=== PATIENT | female | born 1945 | race Caucasian/White ===

== ENCOUNTER 2019-07-20 10:05 | Outpatient (CLI) | payer MEDICARE, OTHER, SELFPAY ==
--- NOTE | 2019-07-20 10:15 | ECG_ITS ---
Measurements Intervals [place] Rate: 55 P: 227 WA: 216 QRS: -14 QRSD: 98 T: 52 QT: 442 QTc: 424 Interpretive Statements SINUS BRADYCARDIA LOW VOLTAGE- PRECORDIAL LEADS POOR R WAVE PROGRESSION, CONSIDER ANTERIOR INFARCT BASELINE ARTIFACT- I, II, III, AVR, AVL, AVF, V1-V6 ABNORMAL ECG Electronically Signed On 07-20-2019 14:58:11 COMMUTATOR INSPECTOR by Kartik Haji D.O.
== END 2019-07-20 10:06 | disposition home or self-care (01) ==
LOC: ANHSURGERY 10:15
PROVIDERS: PCP Family Medicine; Visit Provider Urology
DX: N31.9 Neuromuscular dysfunction of bladder, unspecified (principal); I10 Essential (primary) hypertension; R94.31 Abnormal electrocardiogram [ECG] [EKG]
CPT/HCPCS: 87077; 87086; 87088; 87186; 93005

== ENCOUNTER 2019-07-24 01:14 | Day surgery (SDC) | payer MEDICARE, OTHER, SELFPAY ==
[2019-07-02 13:57] VITALS: BMI 35.5
[2019-07-24 06:58] VITALS: BP 182/69; PULSE 63; RESP 20; TEMP 36.4; O2SAT 96
--- NOTE | 2019-07-24 07:09 | WPDANESEPPF ---
Anes - Initial Pre Proc Eval Procedure: Operation Date: 07/24/19 08:45 Proposed Procedures p Cystoscopy, Botox Injection - Miguel Paulson MD Date/Time: 07/24/19 07:09 Surgeon: Miguel Paulson MD Pre Op Diagnosis: Neurogenic Bladder Patient Data Age: 74 Gender: F Height: 1.68 m Weight: 99.8 kg Allergies Allergy/AdvReac Type Severity Reaction Status Date / Time latex Allergy Unknown Rash Verified 07/02/19 13:17 NSAIDS (Non-Steroidal Allergy Unknown Unknown Verified 07/02/19 13:18 Anti-Inflamma propoxyphene Allergy Unknown Nausea Verified 07/02/19 13:16 [From Darvocet-N] zolpidem [From Ambien] Allergy Unknown Confusion Verified 07/02/19 13:14 Home Medications Medication Instructions Recorded Confirmed Type acetaminophen [Tylenol Extra 500 mg PO BID PRN 07/02/19 07/02/19 History Strength] aspirin [Aspir-81] 81 mg PO HS 07/02/19 07/02/19 History cholecalciferol (vitamin D3) 2,000 unit PO DAILY 07/02/19 07/02/19 History clonazepam 0.25 mg PO HS 07/02/19 07/02/19 History escitalopram oxalate [Lexapro] 10 mg PO DAILY 07/02/19 07/02/19 History levothyroxine 112 mcg PO DAILY 07/02/19 07/02/19 History lisinopril 10 mg PO HS 07/02/19 07/02/19 History metoprolol succinate [Toprol XL] 50 mg PO HS 07/02/19 07/02/19 History omega 7-uzp-dom-fish oil [Fish Oil] 1 cap PO DAILY 07/02/19 07/02/19 History pravastatin 40 mg PO HS 07/02/19 07/02/19 History pregabalin [Lyrica] 75 mg PO PRN PRN 07/02/19 07/02/19 History pregabalin [Lyrica] 150 mg PO QPM 07/02/19 07/02/19 History Patient hx anesthesia problems: none Family hx anesthesia problems: none PMFSH Past Medical History Medical History (Updated 07/23/19 @ 08:14 by Gage Engel DO) Anxiety CAD (coronary artery disease) CVA (cerebral vascular accident) no residual History of heart attack 2013 Hyperlipidemia Hypertension Multiple sclerosis uses wheelchair Surgical History Surgical History (Updated 07/23/19 @ 08:14 by Gage Engel DO) History of coronary artery stent placement 2006, 2008, 2013 for total of 3 History of total knee arthroplasty b/l Hx of CABG x5 vessel 2005 Anes - Eval Final PreProcedure Day of Procedure 07/24/19 07:09 Patient weight: obese Heart: regular rate and rhythm Lungs: clear to auscultation and normal air movement Airway: Mallampati scale class III Neurological: alert and oriented Last oral intake: >/= 8 hours ASA classification: IV Emergent: no Anesthetic plan: proceed Anesthesia type and monitoring: general GIVS and standard monitoring Informed Consent: The patient's anesthetic plan and its attendant risks and benefits were discussed with the patient/family/POA. Questions were solicited and answers provided to the satisfaction of the patient/family/POA.
[2019-07-24] MEDS: LACTATED RINGERS 1,000 ML 30 ML IV CONT (07:10)
--- NOTE | 2019-07-24 07:24 | WPDHPUPDATE1 ---
History and Physical Update Update Date/Time: 07/24/19 07:24 History and Physical has been reviewed, including an updated exam of the patient. There are NO changes in the patient's condition. Risks, benefits, and alternatives have been discussed and questions answered. Patient agrees to proceed with procedure.
[2019-07-24] MEDS: ceFAZolin 2 GM/D5W 50 ML 2 GM/50 ML BAG IVPB (07:31)
[2019-07-24] MEDS: BOTULINUM TOXIN TYPE A (*SPLP) 100 UNITS VIAL 200 UNITS IM (07:47)
[2019-07-24] MEDS: LIDOCAINE HCL 2% GEL UROJET 10 ML PKG MUCOUS MEM (07:48)
--- NOTE | 2019-07-24 07:50 | PM.PROC ---
Procedure Note - Detailed Date of procedure: 07/24/19 Pre-op diagnosis: Neurogenic Bladder Post-op diagnosis: same Procedure performed: Cystoscopy with injection of botulinum toxin a 200 units Description of procedure: She has had Botox in the past. We used 100 units. She had about 50% success. She would like to go up to 200 units. She understands the risk of lack of efficacy and need for intermittent catheterization. She agrees to proceed. She was correctly identified informed consent was obtained she was brought to the operating room. She was placed in the dorsal thigh position. She was given mac anesthesia. She was prepped and draped in sterile fashion. She was pretreated with antibiotics and given appropriate perioperative antibiotics. A time-out performed. Cystoscopy revealed a normal-appearing bladder. Mild trabeculation. No redness or signs of active infection. I mixed 200 units of Botox in 20 cc preservative-free saline. I injected it throughout the bladder the sub urothelial layer. I used additional cc to clear the needle. The there was minimal bleeding under low insufflation pressures. Her bladder was drained. She was awakened and transferred to the PACU in stable condition. Anesthesia: MAC Surgeon: Miguel Paulson MD Estimated blood loss (mL): 1 Drains: No Packing: No Pathology: none sent Complications: No immediate complications Condition: stable Disposition: PACU
[2019-07-24 07:55] VITALS: BP 153/54; PULSE 63; RESP 14; O2SAT 96
[2019-07-24 08:10] VITALS: BP 164/53; PULSE 57; RESP 16
[2019-07-24 08:25] VITALS: BP 182/61; PULSE 55; RESP 16
== END 2019-07-24 09:05 | disposition home or self-care (01) ==
PROVIDERS: PCP Family Medicine; Visit Provider Urology
PROC: 3E0K8GC Introduction of Other Therapeutic Substance into Genitourinary Tract, Via Natural or Artificial Opening Endoscopic (ICD-10-PCS; CPT 52287; principal; 2019-07-24 08:45)
DX: N31.9 Neuromuscular dysfunction of bladder, unspecified (principal); I10 Essential (primary) hypertension; I25.10 Atherosclerotic heart disease of native coronary artery without angina pectoris; G35 Multiple sclerosis; E78.5 Hyperlipidemia, unspecified; I25.2 Old myocardial infarction; F41.9 Anxiety disorder, unspecified; Z79.82 Long term (current) use of aspirin; Z86.73 Personal history of transient ischemic attack (TIA), and cerebral infarction without residual deficits; Z95.5 Presence of coronary angioplasty implant and graft; Z95.1 Presence of aortocoronary bypass graft; E66.9 Obesity, unspecified; Z68.35 Body mass index [BMI] 35.0-35.9, adult
CPT/HCPCS: 52287; A9270; J0585; J0690; J2704; J3010; J7120

== ENCOUNTER 2020-01-15 13:23 | Outpatient (CLI) | payer MEDICARE, OTHER, SELFPAY | END 2020-01-15 13:24 | disposition home or self-care (01) | LOC: ANHSURGERY 13:25 | PROVIDERS: Visit Provider Urology | DX: Z01.818 Encounter for other preprocedural examination (principal); N31.9 Neuromuscular dysfunction of bladder, unspecified | CPT/HCPCS: 87077; 87086; 87088; 87186 ==

== ENCOUNTER 2020-02-11 12:27 | Outpatient (CLI) | payer MEDICARE, OTHER, SELFPAY | END 2020-02-11 12:28 | disposition home or self-care (01) | LOC: ANHSURGERY 12:29 | PROVIDERS: Visit Provider Urology | DX: N31.9 Neuromuscular dysfunction of bladder, unspecified (principal); N39.0 Urinary tract infection, site not specified | CPT/HCPCS: 87086; 87088 ==

== ENCOUNTER 2020-02-17 01:53 | Outpatient (CLI) | payer MEDICARE, OTHER, SELFPAY ==
[2020-02-17 19:20] LABS: SARS-CoV-2 RNA PCR Negative
== END 2020-02-17 01:54 | disposition home or self-care (01) ==
LOC: ANHCOVIDDT 01:53
PROVIDERS: Visit Provider Urology
DX: Z01.812 Encounter for preprocedural laboratory examination (principal); Z20.828 Contact with and (suspected) exposure to other viral communicable diseases
CPT/HCPCS: 87635; C9803; U0003

== ENCOUNTER 2020-02-19 00:51 | Day surgery (SDC) | payer MEDICARE, OTHER, SELFPAY ==
[2020-01-11 10:50] VITALS: BMI 35.6
--- NOTE | 2020-02-14 17:39 | PM.IMHP ---
H&P: HPI History of Present Illness Date/Time: 02/14/20 17:39 Chief complaint: Neurogenic Bladder N31.1 Narrative: Shelley Marie is a 75 year old female with neurogenic bladder PMFSH Past Medical History Medical History (Updated 02/14/20 @ 17:41 by Miguel Paulson MD) Anxiety CAD (coronary artery disease) CVA (cerebral vascular accident) no residual History of heart attack 2013 Hyperlipidemia Hypertension Multiple sclerosis uses wheelchair Surgical History Surgical History (Updated 07/23/19 @ 08:14 by Gage Engel DO) History of coronary artery stent placement 2006, 2008, 2013 for total of 3 History of total knee arthroplasty b/l Hx of CABG x5 vessel 2005 Social History Social History Smoking status: Former smoker Additional smoking assessment comments: 1PK/DAY - QUIT Spiritual care concerns: No Meds Home Medications and Allergies Home Medications Medication Instructions Recorded Confirmed Type acetaminophen [Tylenol Extra 500 mg PO BID PRN 07/02/19 01/11/20 History Strength] aspirin [Aspir-81] 81 mg PO HS 07/02/19 01/11/20 History cholecalciferol (vitamin D3) 2,000 unit PO DAILY 07/02/19 01/11/20 History clonazepam 0.25 mg PO HS 07/02/19 01/11/20 History escitalopram oxalate [Lexapro] 10 mg PO DAILY 07/02/19 01/11/20 History levothyroxine 112 mcg PO DAILY 07/02/19 01/11/20 History lisinopril 10 mg PO HS 07/02/19 01/11/20 History metoprolol succinate [Toprol XL] 50 mg PO HS 07/02/19 01/11/20 History omega 6-nkd-oou-fish oil [Fish Oil] 1 cap PO DAILY 07/02/19 01/11/20 History pravastatin 40 mg PO HS 07/02/19 01/11/20 History pregabalin [Lyrica] 75 mg PO PRN PRN 07/02/19 01/11/20 History pregabalin [Lyrica] 150 mg PO QPM 07/02/19 01/11/20 History Allergies Allergy/AdvReac Type Severity Reaction Status Date / Time latex Allergy Unknown Rash Verified 01/11/20 10:47 NSAIDS (Non-Steroidal Allergy Unknown Nausea Verified 01/11/20 10:47 Anti-Inflamma propoxyphene Allergy Unknown Nausea Verified 01/11/20 10:47 [From Darvocet-N] zolpidem [From Ambien] Allergy Unknown Confusion Verified 01/11/20 10:47 Exam Const: General: no acute distress HENMT: Mouth: Yes moist mucous membranes Eyes: EOM: EOMs intact bilaterally Neck: Neck: supple Resp: Effort & Inspection: normal respiratory effort GI: GI Palp: Yes Soft to palpation Skin: General skin exam: normal color Extrem: General: normal to inspection Psych: Mental Status: mental status grossly normal Assessment and Plan Assessment and plan (1) Reflex neurogenic bladder: Code(s): N31.1 - Reflex neuropathic bladder, not elsewhere classified Status: Acute Assessment and Plan: cysto/botox 200U
--- NOTE | 2020-02-19 07:21 | WPDHPUPDATE1 ---
History and Physical Update Update Date/Time: 02/19/20 07:21 History and Physical has been reviewed, including an updated exam of the patient. There are NO changes in the patient's condition. Risks, benefits, and alternatives have been discussed and questions answered. Patient agrees to proceed with procedure.
[2020-02-19 09:40] VITALS: BP 187/73; PULSE 50; RESP 18; TEMP 36.8; O2SAT 97
--- NOTE | 2020-02-19 09:43 | WPDANESEPPF ---
Anes - Initial Pre Proc Eval Procedure: Operation Date: 02/19/20 11:30 Proposed Procedures p Cystoscopy, Botox Injection - Miguel Paulson MD Date/Time: 02/19/20 09:43 Surgeon: Miguel Paulson MD Pre Op Diagnosis: Neurogenic Bladder N31.1 Patient Data Age: 75 Gender: F Height: 5 ft 6 in Weight: 99.4 kg Allergies Allergy/AdvReac Type Severity Reaction Status Date / Time latex Allergy Unknown Rash Verified 02/19/20 09:34 NSAIDS (Non-Steroidal Allergy Unknown Nausea Verified 02/19/20 09:34 Anti-Inflamma propoxyphene Allergy Unknown Nausea Verified 02/19/20 09:34 [From Darvocet-N] zolpidem [From Ambien] Allergy Unknown Confusion Verified 02/19/20 09:34 Home Medications Medication Instructions Recorded Confirmed Type acetaminophen [Tylenol Extra 500 mg PO BID PRN 07/02/19 02/19/20 History Strength] aspirin [Aspir-81] 81 mg PO HS 07/02/19 02/19/20 History cholecalciferol (vitamin D3) 2,000 unit PO DAILY 07/02/19 02/19/20 History clonazepam 0.25 mg PO HS 07/02/19 02/19/20 History escitalopram oxalate [Lexapro] 10 mg PO DAILY 07/02/19 02/19/20 History levothyroxine 112 mcg PO DAILY 07/02/19 02/19/20 History lisinopril 10 mg PO HS 07/02/19 02/19/20 History metoprolol succinate [Toprol XL] 50 mg PO HS 07/02/19 02/19/20 History omega 9-hnp-uoq-fish oil [Fish Oil] 1 cap PO DAILY 07/02/19 02/19/20 History pravastatin 40 mg PO HS 07/02/19 02/19/20 History pregabalin [Lyrica] 75 mg PO PRN PRN 07/02/19 02/19/20 History pregabalin [Lyrica] 150 mg PO QPM 07/02/19 02/19/20 History Patient hx anesthesia problems: none Family hx anesthesia problems: none PMFSH Past Medical History Medical History Anxiety CAD (coronary artery disease) CVA (cerebral vascular accident) no residual History of heart attack 2013 Hyperlipidemia Hypertension Multiple sclerosis uses wheelchair Surgical History Surgical History History of coronary artery stent placement 2006, 2008, 2013 for total of 3 History of total knee arthroplasty b/l Hx of CABG x5 vessel 2006 Social History Social History Smoking status: Former smoker Additional smoking assessment comments: 1PK/DAY - QUIT Living arrangements: with family Spiritual care concerns: No Anes - Eval Final PreProcedure Day of Procedure 02/19/20 09:43 Patient weight: obese Heart: regular rate and rhythm Lungs: decreased breath sounds Airway: Mallampati scale class II Neurological: other (alert) Last oral intake: >/= 8 hours ASA classification: IV Emergent: no Anesthetic plan: proceed Anesthesia type and monitoring: general GIVS and standard monitoring Informed Consent: The patient's anesthetic plan and its attendant risks and benefits were discussed with the patient/family/POA. Questions were solicited and answers provided to the satisfaction of the patient/family/POA.
[2020-02-19] MEDS: LACTATED RINGERS 1,000 ML 30 ML IV CONT (09:45)
[2020-02-19] MEDS: ceFAZolin 2 GM/D5W 50 ML 2 GM/50 ML BAG IVPB (10:38)
[2020-02-19] MEDS: LIDOCAINE HCL 2% GEL UROJET 10 ML PKG MUCOUS MEM (10:46)
[2020-02-19] MEDS: BOTULINUM TOXIN TYPE A (*SPLP) 100 UNITS VIAL 200 UNITS IM (10:47)
[2020-02-19 11:03] VITALS: BP 151/61; PULSE 61; RESP 16; O2SAT 96
--- NOTE | 2020-02-19 11:06 | PM.PROC ---
Procedure Note - Detailed Date of procedure: 02/19/20 Pre-op diagnosis: Neurogenic Bladder N31.1 Post-op diagnosis: same Procedure performed: Cystoscopy with injection of Botox 200 units Description of procedure: She was correctly identified informed consents obtained. She from the operating room. She was given mac anesthesia. She was placed in dorsal position. She was prepped and draped in a sterile fashion. Time-out performed. Bladder had moderate trabeculations. I mixed 2 units of Botox in 20 cc preservative-free saline. I injected throughout the bladder the sub urothelial layer. Additional cc was used to clear the field. Her bladder is drained. There was minimal bleeding the injection sites. She was awakened and transferred to the PACU in stable condition. Anesthesia: MAC Surgeon: Miguel Paulson MD Estimated blood loss (mL): 0 Drains: No Packing: No Pathology: none sent Complications: No immediate complications Condition: stable Disposition: PACU
[2020-02-19 11:30] VITALS: BP 212/82; PULSE 52; RESP 16; O2SAT 97
[2020-02-19 12:00] VITALS: BP 185/58; PULSE 51; RESP 16; O2SAT 97
[2020-02-19] MEDS: hydrALAZINE HCL 20 MG/ML VIAL 10 MG IV PUSH (12:10)
[2020-02-19 12:30] VITALS: BP 167/55; PULSE 59; RESP 16; O2SAT 98
[2020-02-19 12:45] VITALS: BP 180/52; PULSE 54; RESP 16
== END 2020-02-19 13:07 | disposition home or self-care (01) ==
PROVIDERS: Visit Provider Urology
PROC: 3E0K8GC Introduction of Other Therapeutic Substance into Genitourinary Tract, Via Natural or Artificial Opening Endoscopic (ICD-10-PCS; CPT 52287; principal; 2020-02-19 11:30)
DX: N31.1 Reflex neuropathic bladder, not elsewhere classified (principal); I25.10 Atherosclerotic heart disease of native coronary artery without angina pectoris; I10 Essential (primary) hypertension; E78.5 Hyperlipidemia, unspecified; G35 Multiple sclerosis; I25.2 Old myocardial infarction; F41.9 Anxiety disorder, unspecified; Z86.73 Personal history of transient ischemic attack (TIA), and cerebral infarction without residual deficits; Z79.82 Long term (current) use of aspirin; Z95.5 Presence of coronary angioplasty implant and graft; Z95.1 Presence of aortocoronary bypass graft; Z87.891 Personal history of nicotine dependence; E66.9 Obesity, unspecified; Z68.35 Body mass index [BMI] 35.0-35.9, adult
CPT/HCPCS: 52287; A9270; J0360; J0585; J0690; J1100; J2405; J2704; J3010; J7120

== ENCOUNTER → 2020-09-02 00:11 | Outpatient (CLI) | payer MEDICARE, OTHER, SELFPAY ==
[2020-09-02 17:44] LABS: SARS-CoV-2 RNA PCR Negative
== END ==
PROVIDERS: Visit Provider Urology
DX: Z01.812 Encounter for preprocedural laboratory examination (principal); Z20.822 Contact with and (suspected) exposure to COVID-19
CPT/HCPCS: C9803; U0003; U0005

== ENCOUNTER 2020-09-02 08:16 | Outpatient (CLI) | payer MEDICARE, OTHER, SELFPAY ==
[2020-09-02 09:03] LABS: Add Urine Microscopic? YES; Appearance Urine Cloudy (Clear); Bacteria Urine 2+ /hpf; Bilirubin Urine Negative (Negative); Blood Urine Negative (Negative); Color Urine Yellow (Yellow); Glucose Urine UA Negative (Negative); Ketones Urine Negative (Negative); Leukocyte Esterase Ur 1+ LEU/UL (Negative); Mucus Urine Rare /lpf; Nitrate Urine Negative (Negative); Protein Urine 1+ mg/dL (Negative); Specific Grav Ur 1.026 (1.001-1.035); Squamous Epithelial Cell Urine Many /hpf (Few); Urobilinogen Urine Negative mg/dL (<2.0); WBC Urine 31-50 /hpf
--- NOTE | 2020-09-02 09:30 | ECG_ITS ---
Measurements Intervals [place] Rate: 56 P: 7 [place]: 208 QRS: -9 QRSD: 93 T: 50 QT: 420 QTc: 406 Interpretive Statements SINUS BRADYCARDIA BORDERLINE R WAVE PROGRESSION, ANTERIOR LEADS INFERIOR INFARCT, AGE INDETERMINATE BORDERLINE ST-T WAVE ABNORMALITY- ANT/HIGH LAT LEADS BASELINE ARTIFACT- I, II, III, AVR, AVL, AVF, V1-V6 ABNORMAL ECG Electronically Signed On 09-02-2020 8:47:10 CDT by Kartik Haji D.O.
== END 2020-09-02 08:17 | disposition home or self-care (01) ==
LOC: ANHSURGERY 08:20
PROVIDERS: Visit Provider Urology
DX: Z01.818 Encounter for other preprocedural examination (principal); N31.1 Reflex neuropathic bladder, not elsewhere classified; I25.2 Old myocardial infarction; R00.1 Bradycardia, unspecified; Z51.81 Encounter for therapeutic drug level monitoring; Z79.899 Other long term (current) drug therapy; I10 Essential (primary) hypertension
CPT/HCPCS: 81001; 87077; 87086; 87088; 87186; 93005; C9803; U0003; U0005

== ENCOUNTER 2020-09-05 01:04 | Day surgery (SDC) | payer MEDICARE, OTHER, SELFPAY ==
[2020-08-29 11:08] VITALS: BMI 37.1
--- NOTE | 2020-09-02 18:08 | PM.IMHP ---
H&P: HPI History of Present Illness Date/Time: 09/02/20 18:08 75yo with Neurogenic bladder Chief Complaint: NGB Review of Systems Review of Systems: All systems reviewed & are unremarkable except as noted in HPI and below [facility] Past Medical History Medical History Anxiety CAD (coronary artery disease) CVA (cerebral vascular accident) no residual History of heart attack 2013 Hyperlipidemia Hypertension Multiple sclerosis uses wheelchair Surgical History Surgical History History of coronary artery stent placement 2006, 2008, 2013 for total of 3 History of total knee arthroplasty b/l Hx of CABG x5 vessel 2005 Social History Social History Smoking packs per day: 1 Smoking cigarettes per day: 20.0 Years smoked: 15 Smoking pack-years: 15.00 Smoking status: Former smoker Tobacco type: cigarettes Smoking end date: 06/10/79 Additional smoking assessment comments: 1PK/DAY - QUIT Spiritual care concerns: No Meds Home Medications and Allergies Home Medications Medication Instructions Recorded Confirmed Type acetaminophen [Tylenol Extra 500 mg PO BID PRN 07/02/19 08/29/20 History Strength] aspirin [Aspir-81] 81 mg PO HS 07/02/19 08/29/20 History cholecalciferol (vitamin D3) 2,000 unit PO DAILY 07/02/19 08/29/20 History escitalopram oxalate [Lexapro] 10 mg PO DAILY 07/02/19 08/29/20 History levothyroxine 112 mcg PO DAILY 07/02/19 08/29/20 History lisinopril 40 mg PO DAILY 07/02/19 08/29/20 History metoprolol succinate [Toprol XL] 50 mg PO HS 07/02/19 08/29/20 History omega 0-pcq-wso-fish oil [Fish Oil] 1 cap PO BID 07/02/19 08/29/20 History pravastatin 40 mg PO HS 07/02/19 08/29/20 History pregabalin [Lyrica] 75 mg PO PRN PRN 07/02/19 08/29/20 History pregabalin [Lyrica] 150 mg PO QPM 07/02/19 08/29/20 History melatonin 3 mg PO HS PRN 08/29/20 08/29/20 History Allergies Allergy/AdvReac Type Severity Reaction Status Date / Time latex Allergy Unknown Rash Verified 08/29/20 10:46 NSAIDS (Non-Steroidal Allergy Unknown PT STATES Verified 08/29/20 10:48 Anti-Inflamma ORDERS FROM [employer] propoxyphene Allergy Unknown Nausea Verified 08/29/20 10:46 [From Darvocet-N] zolpidem [From Ambien] Allergy Unknown Confusion Verified 08/29/20 10:46 Exam Const: General: cooperative and healthy appearing HENMT: Head: normal to inspection Eyes: General: appearance normal, both eyes and all related structures Resp: Effort & Inspection: normal respiratory effort and able to speak in complete sentences GI: Inspection: normal to inspection Skin: General skin exam: normal color Assessment and Plan Assessment and plan (1) Reflex neurogenic bladder: Code(s): N31.1 - Reflex neuropathic bladder, not elsewhere classified Status: Acute Assessment and Plan: cysto/botox 200U
[2020-09-05] VITALS (7 sets, daily range): BP systolic 164–196; BP diastolic 69–93; PULSE 57–70; RESP 14–20; TEMP 37.1; O2SAT 99
--- NOTE | 2020-09-05 07:20 | WPDHPUPDATE1 ---
History and Physical Update Update Date/Time: 09/05/20 07:20 History and Physical has been reviewed, including an updated exam of the patient. There are NO changes in the patient's condition. Risks, benefits, and alternatives have been discussed and questions answered. Patient agrees to proceed with procedure.
--- NOTE | 2020-09-05 12:50 | WPDANESEPPF ---
Anes - Initial Pre Proc Eval Procedure: Operation Date: 09/05/20 14:30 Proposed Procedures p Cystoscopy, Botox Injection - Miguel Paulson MD Date/Time: 09/05/20 12:50 Surgeon: Miguel Paulson MD Pre Op Diagnosis: Neurogenic Bladder Patient Data Age: 75 Gender: F Height: 5 ft 6 in Weight: 104.33 kg Allergies Allergy/AdvReac Type Severity Reaction Status Date / Time latex Allergy Unknown Rash Verified 08/29/20 10:46 NSAIDS (Non-Steroidal Allergy Unknown PT STATES Verified 08/29/20 10:48 Anti-Inflamma ORDERS FROM DIAGNOSTIC RADIOLOGIST propoxyphene Allergy Unknown Nausea Verified 08/29/20 10:46 [From Darvocet-N] zolpidem [From Ambien] Allergy Unknown Confusion Verified 08/29/20 10:46 Home Medications Medication Instructions Recorded Confirmed Type acetaminophen [Tylenol Extra 500 mg PO BID PRN 07/02/19 08/29/20 History Strength] aspirin [Aspir-81] 81 mg PO HS 07/02/19 08/29/20 History cholecalciferol (vitamin D3) 2,000 unit PO DAILY 07/02/19 08/29/20 History escitalopram oxalate [Lexapro] 10 mg PO DAILY 07/02/19 08/29/20 History levothyroxine 112 mcg PO DAILY 07/02/19 08/29/20 History lisinopril 40 mg PO DAILY 07/02/19 08/29/20 History metoprolol succinate [Toprol XL] 50 mg PO HS 07/02/19 08/29/20 History omega 0-rmp-auv-fish oil [Fish Oil] 1 cap PO BID 07/02/19 08/29/20 History pravastatin 40 mg PO HS 07/02/19 08/29/20 History pregabalin [Lyrica] 75 mg PO PRN PRN 07/02/19 08/29/20 History pregabalin [Lyrica] 150 mg PO QPM 07/02/19 08/29/20 History melatonin 3 mg PO HS PRN 08/29/20 08/29/20 History Patient hx anesthesia problems: none Family hx anesthesia problems: none PMFSH Past Medical History Medical History Anxiety CAD (coronary artery disease) CVA (cerebral vascular accident) no residual History of heart attack 2013 Hyperlipidemia Hypertension Multiple sclerosis uses wheelchair Surgical History Surgical History History of coronary artery stent placement 2006, 2008, 2013 for total of 3 History of total knee arthroplasty b/l Hx of CABG x5 vessel 2005 Social History Social History Smoking packs per day: 1 Smoking cigarettes per day: 20.0 Years smoked: 15 Smoking pack-years: 15.00 Smoking status: Former smoker Tobacco type: cigarettes Smoking end date: 06/10/79 Additional smoking assessment comments: 1PK/DAY - QUIT Living arrangements: with family Spiritual care concerns: No Anes - Eval Final PreProcedure Day of Procedure 09/05/20 12:50 Patient weight: obese Heart: regular rate and rhythm Lungs: clear to auscultation Airway: Mallampati scale class II Neurological: other (alert) Last oral intake: >/= 8 hours ASA classification: III Emergent: no Anesthetic plan: proceed Anesthesia type and monitoring: general GIVS and standard monitoring Informed Consent: The patient's anesthetic plan and its attendant risks and benefits were discussed with the patient/family/POA. Questions were solicited and answers provided to the satisfaction of the patient/family/POA.
[2020-09-05] MEDS: LACTATED RINGERS 1,000 ML 30 ML IV CONT (13:02)
[2020-09-05] MEDS: BOTULINUM TOXIN TYPE A (*SPLP) 100 UNITS VIAL 200 UNITS XX (14:36)
[2020-09-05] MEDS: ceFAZolin 2 GM/D5W 50 ML 2 GM/50 ML BAG IVPB (14:37)
[2020-09-05] MEDS: LIDOCAINE HCL 2% GEL UROJET 10 ML PKG MUCOUS MEM (14:37)
--- NOTE | 2020-09-05 14:44 | PM.PROC ---
Procedure Note - Detailed Date of procedure: 09/05/20 Pre-op diagnosis: Neurogenic Bladder Post-op diagnosis: same Procedure performed: Cystoscopy with injection of botulinum toxin a 200 units Description of procedure: She is asymptomatic for urinary tract infection. Despite a positive urine culture. She understands the small risk of infection. She presents today for Botox procedure. Works excellent for her. She was correctly identified. Informed consent obtained. From the operating room. She was given mac anesthesia. She was prepped and draped in a sterile fashion. Time-out performed. Cystoscopy revealed a normal-appearing bladder. There is no inflammation or signs of infection. Ureteral orifices were normal. No other bladder abnormalities. I mixed 200units of Botox in 20 cc preservative-free saline. I injected it throughout the bladder in the sub urothelial muscular layer. Additional cc was used to clear the heel. She was awakened after bladder was drained and taken to the PACU in stable condition. Anesthesia: MAC Surgeon: Miguel Paulson MD Estimated blood loss (mL): 0 Drains: No Packing: No Pathology: none sent Complications: No immediate complications Condition: stable Disposition: PACU
--- NOTE | 2020-09-05 17:12 | SUR.PHASEII ---
1615 - dr. gould called in regards to pt's blood pressure. 191/77 hr 63. no orders received at this time.
== END 2020-09-05 17:00 | disposition home health service (06) ==
PROVIDERS: PCP Family Medicine; Visit Provider Urology
PROC: 3E0K8GC Introduction of Other Therapeutic Substance into Genitourinary Tract, Via Natural or Artificial Opening Endoscopic (ICD-10-PCS; CPT 52287; principal; 2020-09-05 14:30)
DX: N31.9 Neuromuscular dysfunction of bladder, unspecified (principal); F41.9 Anxiety disorder, unspecified; I11.9 Hypertensive heart disease without heart failure; I25.10 Atherosclerotic heart disease of native coronary artery without angina pectoris; Z86.73 Personal history of transient ischemic attack (TIA), and cerebral infarction without residual deficits; Z86.74 Personal history of sudden cardiac arrest; E78.5 Hyperlipidemia, unspecified; G35 Multiple sclerosis; Z87.891 Personal history of nicotine dependence; Z79.82 Long term (current) use of aspirin; Z95.1 Presence of aortocoronary bypass graft; Z95.5 Presence of coronary angioplasty implant and graft; E03.9 Hypothyroidism, unspecified; E66.9 Obesity, unspecified; Z68.37 Body mass index [BMI] 37.0-37.9, adult
CPT/HCPCS: 52287; A9270; J0585; J0690; J2704; J7120